=== PATIENT | female | born 1975 | race Caucasian/White ===

== ENCOUNTER 2020-08-03 09:29 | Emergency (ER) | payer OTHER ==
[~2020-08-03] VITALS: Ht 165.1 cm; Wt 99.3 kg
[2020-08-03] MEDS ORDERED: ZOLOFT100 MG PO (09:41)
[2020-08-03] MEDS ORDERED: AMITRIPTYLINE H10 M1 PO (09:42)
[2020-08-03] MEDS ORDERED: GLYBURIDE5 MG PO (09:43)
[2020-08-03] MEDS ORDERED: JANUVIA100 MG PO (09:44)
[2020-08-03] MEDS ORDERED: VRAYLAR3 MG PO (09:52)
[2020-08-03] MEDS ORDERED: MIDODRINE HCL10 MG PO (09:54)
[2020-08-03] MEDS ORDERED: OMEPRAZOLE40 MG PO (09:54)
[2020-08-03] MEDS ORDERED: HYDROCODONE-AC1 EAC1 PO (12:41)
[2020-08-03] MEDS ORDERED: PREDNISONE50 MG PO (12:41)
[2020-08-03] MEDS ORDERED: CYCLOBENZAPRINE10 MG PO (12:41)
== END 2020-08-03 13:05 | disposition home or self-care (01) ==
LOC: ED 09:29
DX: S39.012A Strain of muscle, fascia and tendon of lower back, initial encounter (principal); Z88.2 Allergy status to sulfonamides; Z79.899 Other long term (current) drug therapy; X50.0XXA Overexertion from strenuous movement or load, initial encounter; Y93.89 Activity, other specified; Y92.89 Other specified places as the place of occurrence of the external cause; Y99.8 Other external cause status